=== PATIENT | male | born 1965 | race Asian ===

== ENCOUNTER → 2024-08-23 10:41 | Outpatient (REF) | payer OTHER, SELFPAY | LOC: RAD 10:41 | PROVIDERS: ATTENDING PHYSICIAN Physician Assistant | DX: R10.30 Lower abdominal pain, unspecified (principal) | CPT/HCPCS: 74177; Q9967 ==

== ENCOUNTER 2024-09-13 06:23 | Day surgery (SDC) | payer OTHER, SELFPAY | END 2024-09-13 11:33 | disposition home or self-care (01) | LOC: GI 06:23 | PROVIDERS: ATTENDING PHYSICIAN Student in an Organized Health Care Education/Training Program | DX: K62.5 Hemorrhage of anus and rectum (principal); D50.9 Iron deficiency anemia, unspecified; R93.3 Abnormal findings on diagnostic imaging of other parts of digestive tract; K64.0 First degree hemorrhoids; K59.00 Constipation, unspecified; K44.9 Diaphragmatic hernia without obstruction or gangrene; K22.10 Ulcer of esophagus without bleeding; K25.9 Gastric ulcer, unspecified as acute or chronic, without hemorrhage or perforation; K63.5 Polyp of colon; K62.1 Rectal polyp | CPT/HCPCS: 45380; 43239; 88305; 88342 ==

== ENCOUNTER 2025-01-17 06:26 | Day surgery (SDC) | payer OTHER, SELFPAY | END 2025-01-17 12:15 | disposition home or self-care (01) | LOC: GI 06:26 | PROVIDERS: ATTENDING PHYSICIAN Student in an Organized Health Care Education/Training Program | DX: Z12.11 Encounter for screening for malignant neoplasm of colon (principal); D50.9 Iron deficiency anemia, unspecified; K57.30 Diverticulosis of large intestine without perforation or abscess without bleeding; K22.89 Other specified disease of esophagus; K31.89 Other diseases of stomach and duodenum; K31.A19 Gastric intestinal metaplasia without dysplasia, unspecified site; K63.5 Polyp of colon; K31.A11 Gastric intestinal metaplasia without dysplasia, involving the antrum; K29.50 Unspecified chronic gastritis without bleeding; K31.A15 Gastric intestinal metaplasia without dysplasia, involving multiple sites; Z86.0100 Personal history of colon polyps, unspecified | CPT/HCPCS: 45380; 43239; 88305; 88342 ==